=== PATIENT | male | born 1965 | race Caucasian/White ===

== ENCOUNTER 2018-07-07 09:41 | Emergency (ER) | payer OTHER ==
[~2018-07-07] VITALS: Ht 175.3 cm; Wt 78.2 kg
[2018-07-07] MEDS ORDERED: METO25XL PO (09:58)
[2018-07-07] MEDS ORDERED: LISI-662 PO (09:58)
[2018-07-07] MEDS ORDERED: HYDR25TA PO (09:58)
[2018-07-07] MEDS ORDERED: FAMOTIDINE 10 MG/ML 2 ML VIAL IVP ONE (10:30)
[2018-07-07] MEDS ORDERED: DiphenhydrAMINE HCL 50 MG/ML VIAL IVP ONE (10:30)
[2018-07-07] MEDS ORDERED: SODIUM CHLORIDE 0.9% 1,000 ML IV ONE (10:30)
[2018-07-07] MEDS ORDERED: MethylPREDNISolone SOD SUCC 125 MG/2 ML VIAL IVP ONE (10:30)
[2018-07-07] MEDS ORDERED: DARU1TAB PO (11:11)
[2018-07-07] MEDS ORDERED: LEVE500T8 PO (11:11)
[2018-07-07] MEDS ORDERED: EMTR1TAB13 PO (11:11)
[2018-07-07] MEDS ORDERED: TAMS0.4C32 PO (11:11)
[2018-07-07] MEDS ORDERED: TRAZ-184 PO (11:11)
[2018-07-07] MEDS ORDERED: MIRT30TA6 PO (11:11)
[2018-07-07] MEDS ORDERED: GABA-529 PO (11:11)
[2018-07-07] MEDS ORDERED: AMOX500T2 PO (11:11)
[2018-07-07 13:22] VITALS: BP 118/80
== END 2018-07-07 13:26 | disposition home or self-care (01) ==
LOC: EMS 09:43
DX: L50.9 Urticaria, unspecified (principal); R06.02 Shortness of breath; I10 Essential (primary) hypertension; Z88.6 Allergy status to analgesic agent; Z79.899 Other long term (current) drug therapy
CPT/HCPCS: 96374; 96375; 99285; J1200; J2930; J3490; J7030

== ENCOUNTER 2018-07-09 09:14 | Emergency (ER) | payer OTHER ==
[~2018-07-09] VITALS: Ht 175.3 cm; Wt 78.2 kg
[~2018-07-09 09:14] MED LIST: AMOX500T2 PO; DARU1TAB PO; EMTR1TAB13 PO; GABA-529 PO; HYDR25TA PO; LEVE500T8 PO; LISI-662 PO; METO25XL PO; MIRT30TA6 PO; TAMS0.4C32 PO; TRAZ-184 PO
[2018-07-09] MEDS ORDERED: EPIN0.3P3 IM (09:19)
[2018-07-09] MEDS ORDERED: PredniSONE 20 MG TABLET PO ONE (10:15)
[2018-07-09] MEDS ORDERED: DiphenhydrAMINE HCL 25 MG CAPSULE PO ONE (10:15)
[2018-07-09 12:57] VITALS: BP 125/75
== END 2018-07-09 13:22 | disposition home or self-care (01) ==
LOC: EMS 09:14
DX: L50.9 Urticaria, unspecified (principal); T78.1XXA Other adverse food reactions, not elsewhere classified, initial encounter; I10 Essential (primary) hypertension; X58.XXXA Exposure to other specified factors, initial encounter; Z88.6 Allergy status to analgesic agent
CPT/HCPCS: 93005; 99283; J7512

== ENCOUNTER 2018-07-10 09:30 | Emergency (ER) | payer OTHER ==
[~2018-07-10] VITALS: Ht 175.3 cm; Wt 78.2 kg
[~2018-07-10 09:30] MED LIST changes: +EPIN0.3P3 IM
[2018-07-10] MEDS ORDERED: PredniSONE 20 MG TABLET PO ONE (12:15)
[2018-07-10] MEDS ORDERED: DiphenhydrAMINE HCL 25 MG CAPSULE PO ONE (12:15)
[2018-07-10 13:24] VITALS: BP 128/75
== END 2018-07-10 13:25 | disposition home or self-care (01) ==
LOC: EMS 09:31
DX: T78.40XA Allergy, unspecified, initial encounter (principal); X58.XXXA Exposure to other specified factors, initial encounter; I10 Essential (primary) hypertension; Z88.6 Allergy status to analgesic agent; Z79.899 Other long term (current) drug therapy
CPT/HCPCS: 99283; J7512

== ENCOUNTER 2018-07-14 17:55 | Emergency (ER) | payer OTHER ==
[~2018-07-14] VITALS: Ht 170.2 cm; Wt 79.5 kg
[~2018-07-14 17:55] MED LIST changes: -AMOX500T2 PO
[2018-07-14] MEDS ORDERED: ACET-66 PO (18:07)
[2018-07-14] MEDS ORDERED: CHLO25 PO (18:13)
[2018-07-14] MEDS ORDERED: SILD25 PO (18:13)
[2018-07-14] MEDS ORDERED: HALO10 PO (18:13)
[2018-07-14] MEDS ORDERED: ATOR20TA86 PO (18:13)
[2018-07-14] MEDS ORDERED: SERT100T12 PO (18:13)
[2018-07-14] MEDS ORDERED: QUET300XR PO (18:13)
[2018-07-14] MEDS ORDERED: TOPI100T37 PO (18:13)
[2018-07-14] MEDS ORDERED: BUSP15 PO (18:13)
[2018-07-14 18:26] VITALS: BP 135/83
== END 2018-07-14 19:34 | disposition home or self-care (01) ==
LOC: EMS 17:56
DX: M79.661 Pain in right lower leg (principal); I10 Essential (primary) hypertension; F17.210 Nicotine dependence, cigarettes, uncomplicated; Z88.6 Allergy status to analgesic agent; Z79.899 Other long term (current) drug therapy
CPT/HCPCS: 93971

== ENCOUNTER 2018-07-28 12:53 | Emergency (ER) | payer OTHER ==
[~2018-07-28] VITALS: Ht 175.3 cm; Wt 77.7 kg
[~2018-07-28 12:53] MED LIST changes: +ACET-66 PO; +ATOR20TA86 PO; +BUSP15 PO; +CHLO25 PO; +HALO10 PO; +QUET300XR PO; +SERT100T12 PO; +SILD25 PO; +TOPI100T37 PO
[2018-07-28] MEDS ORDERED: HYDROCODONE/ACETAMINOPHEN 5-325 MG TABLET PO ONE (15:00)
[2018-07-28] MEDS ORDERED: AMOX TR/POT CLAV 875 MG/125 MG TABLET PO ONE (15:00)
[2018-07-28 15:26] VITALS: BP 122/74
== END 2018-07-28 15:28 | disposition home or self-care (01) ==
LOC: EMS 12:54
DX: K04.01 Reversible pulpitis (principal); I10 Essential (primary) hypertension; F17.210 Nicotine dependence, cigarettes, uncomplicated; Z79.899 Other long term (current) drug therapy; Z88.6 Allergy status to analgesic agent
CPT/HCPCS: 99406

== ENCOUNTER 2019-04-01 15:35 | Emergency (ER) | payer OTHER ==
[~2019-04-01] VITALS: Ht 175.3 cm; Wt 80.0 kg
[~2019-04-01 15:35] MED LIST changes: +QUET300T5 PO; -QUET300XR PO
[2019-04-01 16:57] LABS: BASOPHILS % (AUTO) 1.1 % (0.0-2.0); EOSINOPHILS % (AUTO) 1.9 % (1.0-6.0); HEMATOCRIT 43.3 % (41-53); HEMOGLOBIN 14.3 g/dL (13.5-17.5); LYMPHOCYTES # (AUTO) 2.2 K/uL (1.0-4.8); LYMPHOCYTES % (AUTO) 39.1 % (22.0-44.0); MEAN CORPUSCULAR HEMOGLOBIN 28.3 pg (26.0-34.0); MEAN CORPUSCULAR HGB CONC 32.9 G/dL (31.0-37.0); MEAN CORPUSCULAR VOLUME 86 fL (80-100); MONOCYTES # (AUTO) 0.4 K/uL (0.1-1.0); MONOCYTES % (AUTO) 7.2 % (2.0-9.0); NEUTROPHILS # (AUTO) 2.9 K/uL (1.8-7.7); NEUTROPHILS % (AUTO) 50.7 % (40.0-70.0); PLATELET COUNT (AUTO) 239 K/uL (150-450); RED BLOOD CELL COUNT(AUTO) 5.04 MIL/uL (4.50-5.90); RED CELL DISTRIBUTION WIDTH 13.1 % (11.5-14.5)
[2019-04-01 17:00] LABS: ANION GAP 10 mmol/L (8-16); CALCIUM, TOTAL 9.4 mg/dL (8.8-10.5); CARBON DIOXIDE 27 mmol/L (22-29); CHLORIDE 103 mmol/L (98-107); CREATININE 1.22 mg/dL (0.60-1.30); GLOMERULAR FILTR. RATE CALC > 60 mL/min (>60); GLUCOSE,RANDOM 96 mg/dL (70-110); POTASSIUM 4.4 mmol/L (3.5-5.1); SODIUM SERUM 140 mmol/L (136-145); UREA NITROGEN, BLOOD 15 mg/dL (7-18)
[2019-04-01 17:07] LABS: ALANINE AMINOTRANSFERASE 30 U/L (12-78); ALBUMIN 4.2 g/dL (3.4-5.0); ALKALINE PHOSPHATASE 72 U/L (46-116); ASPARTATE AMINOTRANSFERASE 27 U/L (15-37); BILIRUBIN,TOTAL 0.5 mg/dL (0.1-1.0); LIPASE 274 U/L (73-393); TOTAL PROTEIN, SERUM 7.3 g/dL (6.4-8.2)
[2019-04-01] MEDS ORDERED: SODIUM CHLORIDE 0.9% 1,000 ML IV ONE (17:30)
[2019-04-01] MEDS ORDERED: ACETAMINOPHEN 325 MG TABLET PO ONE (17:30)
[2019-04-01] MEDS ORDERED: LIDOCAINE 5% 36 GM OINTMENT TP ONE (18:00)
[2019-04-01 18:10] LABS: APPEARANCE,URINE CLEAR (CLEAR); BILIRUBIN,URINE NEGATIVE (NEGATIVE); GLUCOSE, URINE (UA) NEGATIVE (NEGATIVE); KETONES,URINE NEGATIVE (NEGATIVE); LEUKOCYTE ESTERASE ,URINE NEGATIVE (NEGATIVE); NITRATE,URINE NEGATIVE (NEGATIVE); OCCULT BLOOD,URINE NEGATIVE (NEGATIVE); PROTEIN,URINE NEGATIVE (NEGATIVE); UROBILINOGEN,URINE 0.2 mg/dL (<=1.0)
[2019-04-01] MEDS ORDERED: LIDOCAINE 5% TRANSDERMAL PATCH TD ONE ×2 (18:12→18:15)
[2019-04-01 18:39] VITALS: BP 150/82
== END 2019-04-01 18:40 | disposition home or self-care (01) ==
LOC: EMS 15:40
DX: M54.5 Low back pain (principal); I10 Essential (primary) hypertension; F20.9 Schizophrenia, unspecified; Z87.891 Personal history of nicotine dependence; Z88.6 Allergy status to analgesic agent; Z79.899 Other long term (current) drug therapy
CPT/HCPCS: 36415; 74176; 80053; 81003; 83690; 85025; 99284; J7030

== ENCOUNTER 2019-04-09 09:38 | Emergency (ER) | payer OTHER ==
[~2019-04-09] VITALS: Ht 175.3 cm; Wt 81.8 kg
[~2019-04-09 09:38] MED LIST changes: -ACET-66 PO; -ATOR20TA86 PO; -BUSP15 PO; -CHLO25 PO; -DARU1TAB PO; -EMTR1TAB13 PO; -GABA-529 PO; -LEVE500T8 PO; -MIRT30TA6 PO; -QUET300T5 PO; -SERT100T12 PO; -SILD25 PO; -TAMS0.4C32 PO; -TOPI100T37 PO
[2019-04-09] MEDS ORDERED: MORPHINE SULFATE 4 MG/ML SYRINGE IVP ONE (11:45)
[2019-04-09] MEDS ORDERED: ONDANSETRON HCL 4 MG/2 ML VIAL IVP ONE (11:45)
[2019-04-09 11:55] LABS: BASOPHILS % (AUTO) 0.7 % (0.0-2.0); EOSINOPHILS % (AUTO) 1.4 % (1.0-6.0); HEMATOCRIT 46.5 % (41-53); HEMOGLOBIN 15.8 g/dL (13.5-17.5); LYMPHOCYTES % (AUTO) 38.9 % (22.0-44.0); MEAN CORPUSCULAR HEMOGLOBIN 28.8 pg (26.0-34.0); MEAN CORPUSCULAR VOLUME 85 fL (80-100); MONOCYTES # (AUTO) 0.3 K/uL (0.1-1.0); MONOCYTES % (AUTO) 5.9 % (2.0-9.0); NEUTROPHILS # (AUTO) 2.7 K/uL (1.8-7.7); NEUTROPHILS % (AUTO) 53.1 % (40.0-70.0); PLATELET COUNT (AUTO) 258 K/uL (150-450); RED BLOOD CELL COUNT(AUTO) 5.48 MIL/uL (4.50-5.90); RED CELL DISTRIBUTION WIDTH 13.7 % (11.5-14.5)
[2019-04-09 12:08] LABS: INR 1.1 (0.9-1.1); PROTHROMBIN TIME 11.2 SEC (9.4-11.6)
[2019-04-09 12:14] LABS: ANION GAP 7 mmol/L (8-16); CALCIUM, TOTAL 9.2 mg/dL (8.8-10.5); CARBON DIOXIDE 28 mmol/L (22-29); CHLORIDE 104 mmol/L (98-107); CREATININE 1.08 mg/dL (0.60-1.30); GLOMERULAR FILTR. RATE CALC > 60 mL/min (>60); GLUCOSE,RANDOM 91 mg/dL (70-110); POTASSIUM 3.8 mmol/L (3.5-5.1); SODIUM SERUM 139 mmol/L (136-145); UREA NITROGEN, BLOOD 7 mg/dL (7-18)
[2019-04-09 12:34] LABS: B-TYPE NATRIURETIC PEPTIDE 18 pg/mL (0-100)
[2019-04-09 12:39] LABS: ALANINE AMINOTRANSFERASE 23 U/L (12-78); ALBUMIN 4.4 g/dL (3.4-5.0); ALKALINE PHOSPHATASE 65 U/L (46-116); ASPARTATE AMINOTRANSFERASE 16 U/L (15-37); BILIRUBIN,TOTAL 0.8 mg/dL (0.1-1.0); CREATINE KINASE, TOTAL ONLY 80 U/L (39-308); TOTAL PROTEIN, SERUM 7.4 g/dL (6.4-8.2)
[2019-04-09 12:51] LABS: APPEARANCE,URINE CLEAR (CLEAR); BILIRUBIN,URINE NEGATIVE (NEGATIVE); GLUCOSE, URINE (UA) NEGATIVE (NEGATIVE); KETONES,URINE NEGATIVE (NEGATIVE); LEUKOCYTE ESTERASE ,URINE NEGATIVE (NEGATIVE); NITRATE,URINE NEGATIVE (NEGATIVE); OCCULT BLOOD,URINE NEGATIVE (NEGATIVE); PH,URINE 6.5 (5.0-8.0); UROBILINOGEN,URINE 0.2 mg/dL (<=1.0)
[2019-04-09 12:52] LABS: PROTEIN,URINE NEGATIVE (NEGATIVE)
[2019-04-09 12:56] LABS: AMPHET/METH SCREEN,URINE NEGATIVE (NEGATIVE); BARBITURATE SCREEN, URINE NEGATIVE (NEGATIVE); BENZODIAZEPINES SCREEN,URINE NEGATIVE (NEGATIVE); CANNABINOID SCREEN,URINE NEGATIVE (NEGATIVE); COCAINE SCREEN,URINE NEGATIVE (NEGATIVE); METHADONE SCREEN, URINE NEGATIVE (NEGATIVE); OPIATE SCREEN,URINE NEGATIVE (NEGATIVE)
[2019-04-09 12:58] LABS: PHENCYCLIDINE SCREEN,URINE NEGATIVE (NEGATIVE)
[2019-04-09] MEDS ORDERED: HydrALAZINE HCL 20 MG/ML VIAL IVP ONE (13:00)
[2019-04-09] MEDS ORDERED: ACETAMINOPHEN 1000 MG/ISO-OSM 100 ML IV ONE (14:15)
[2019-04-09 17:33] VITALS: BP 133/96
== END 2019-04-09 17:50 | disposition home or self-care (01) ==
LOC: EMS 09:39
DX: I10 Essential (primary) hypertension (principal); R11.2 Nausea with vomiting, unspecified; F20.9 Schizophrenia, unspecified; Z87.891 Personal history of nicotine dependence; Z88.6 Allergy status to analgesic agent; Z79.899 Other long term (current) drug therapy
CPT/HCPCS: 36415; 70450; 71045; 80053; 80307; 81003; 82550; 83880; 84484; 85025; 85610; 85730; 93005; 96365; 96366; 96375; 99285; G0480; J0131; J0360; J2270; J2405

== ENCOUNTER 2019-11-27 09:42 | Emergency (ER) | payer OTHER ==
[~2019-11-27] VITALS: Ht 177.8 cm; Wt 79.5 kg
[~2019-11-27 09:42] MED LIST changes: -HALO10 PO; +HYDR-1475 PO; -HYDR25TA PO; +QUET200T PO; +TOPI100T37 PO; -TRAZ-184 PO
[2019-11-27] MEDS ORDERED: SODIUM CHLORIDE 0.9% 1,000 ML IV ONE (10:23)
[2019-11-27] MEDS ORDERED: METOCLOPRAMIDE HCL 5 MG/ML 2 ML VIAL IVP ONE (10:30)
[2019-11-27] MEDS ORDERED: DiphenhydrAMINE HCL 50 MG/ML VIAL IVP ONE (10:30)
[2019-11-27] MEDS ORDERED: HYDROCHLOROTHIAZIDE 25 MG TABLET PO ONE (12:15)
[2019-11-27] MEDS ORDERED: METOPROLOL SUCCINATE 25 MG ER TABLET PO ONE (12:15)
[2019-11-27 13:09] VITALS: BP 132/82
== END 2019-11-27 13:12 | disposition home or self-care (01) ==
LOC: EMS 09:44
DX: G43.909 Migraine, unspecified, not intractable, without status migrainosus (principal); I10 Essential (primary) hypertension; F17.210 Nicotine dependence, cigarettes, uncomplicated; F19.90 Other psychoactive substance use, unspecified, uncomplicated; F20.9 Schizophrenia, unspecified; Z79.899 Other long term (current) drug therapy; Z88.6 Allergy status to analgesic agent
CPT/HCPCS: 96374; 96375; 99284; 99406; J1200; J2765; J7030

== ENCOUNTER 2020-01-07 09:02 | Emergency (ER) | payer OTHER ==
[~2020-01-07] VITALS: Ht 172.7 cm; Wt 82.7 kg
[2020-01-07] MEDS ORDERED: TraMADol HCL 50 MG TABLET PO ONE (12:15)
[2020-01-07 12:30] VITALS: BP 129/82
== END 2020-01-07 12:36 | disposition home or self-care (01) ==
LOC: EMS 09:03
DX: L73.9 Follicular disorder, unspecified (principal); N50.82 Scrotal pain; I10 Essential (primary) hypertension; F20.9 Schizophrenia, unspecified; F17.210 Nicotine dependence, cigarettes, uncomplicated; F12.90 Cannabis use, unspecified, uncomplicated; F19.90 Other psychoactive substance use, unspecified, uncomplicated; Z88.6 Allergy status to analgesic agent; Z79.899 Other long term (current) drug therapy

== ENCOUNTER 2020-08-07 22:40 | Emergency (ER) | payer OTHER ==
[~2020-08-07] VITALS: Ht 175.3 cm; Wt 82.5 kg
[2020-08-08] LABS: COVID AG,FIA SOURCE NASOPHARYNGEAL
[2020-08-08 00:04] LABS: BASOPHILS % (AUTO) 0.8 % (0.0-2.0); EOSINOPHILS % (AUTO) 2.4 % (1.0-6.0); HEMATOCRIT 43.6 % (41-53); HEMOGLOBIN 14.9 g/dL (13.5-17.5); LYMPHOCYTES # (AUTO) 2.7 K/uL (1.0-4.8); LYMPHOCYTES % (AUTO) 32.9 % (22.0-44.0); MEAN CORPUSCULAR HEMOGLOBIN 30.1 pg (26.0-34.0); MEAN CORPUSCULAR HGB CONC 34.3 G/dL (31.0-37.0); MEAN CORPUSCULAR VOLUME 88 fL (80-100); MONOCYTES # (AUTO) 0.7 K/uL (0.1-1.0); MONOCYTES % (AUTO) 8.7 % (2.0-9.0); NEUTROPHILS # (AUTO) 4.6 K/uL (1.8-7.7); NEUTROPHILS % (AUTO) 55.2 % (40.0-70.0); PLATELET COUNT (AUTO) 265 K/uL (150-450); RED BLOOD CELL COUNT(AUTO) 4.97 MIL/uL (4.50-5.90); RED CELL DISTRIBUTION WIDTH 14.5 % (11.5-14.5)
[2020-08-08 00:27] LABS: ANION GAP 13 mmol/L (8-16); CALCIUM, TOTAL 8.8 mg/dL (8.8-10.5); CARBON DIOXIDE 26 mmol/L (22-29); CHLORIDE 101 mmol/L (98-107); CREATININE 1.24 mg/dL (0.60-1.30); GLOMERULAR FILTR. RATE CALC > 60 mL/min (>60); GLUCOSE,RANDOM 125 mg/dL (70-110); POTASSIUM 3.2 mmol/L (3.5-5.1); SODIUM SERUM 140 mmol/L (136-145); UREA NITROGEN, BLOOD 20 mg/dL (7-18)
[2020-08-08 00:34] LABS: ALANINE AMINOTRANSFERASE 41 U/L (12-78); ALBUMIN 3.9 g/dL (3.4-5.0); ALKALINE PHOSPHATASE 99 U/L (46-116); ASPARTATE AMINOTRANSFERASE 20 U/L (15-37); BILIRUBIN,TOTAL 0.5 mg/dL (0.1-1.0); TOTAL PROTEIN, SERUM 7.2 g/dL (6.4-8.2)
[2020-08-08] MEDS ORDERED: ACETAMINOPHEN 325 MG TABLET PO ONE (02:30)
[2020-08-08 03:03] VITALS: BP 117/81
== END 2020-08-08 03:06 | disposition home or self-care (01) ==
LOC: EMS 22:40
DX: R42 Dizziness and giddiness (principal); Z20.822 Contact with and (suspected) exposure to COVID-19
CPT/HCPCS: 70450; 87426; 93005

== ENCOUNTER 2021-07-16 19:54 | Emergency (ER) | payer OTHER ==
[~2021-07-16] VITALS: Ht 175.3 cm; Wt 74.1 kg
[~2021-07-16 19:54] MED LIST changes: -HYDR-1475 PO; +HYDR25TA2 PO; -LISI-662 PO; +LISI-894 PO
[2021-07-16 19:55] VITALS: BP 159/109
[2021-07-16] MEDS ORDERED: FLUO10CA24 PO (20:06)
== END 2021-07-16 20:37 | disposition home or self-care (01) ==
LOC: EMS 20:01
DX: S61.215A Laceration without foreign body of left ring finger without damage to nail, initial encounter (principal); I10 Essential (primary) hypertension; F15.90 Other stimulant use, unspecified, uncomplicated; F17.210 Nicotine dependence, cigarettes, uncomplicated; Z88.8 Allergy status to other drugs, medicaments and biological substances; Z79.899 Other long term (current) drug therapy; W45.8XXA Other foreign body or object entering through skin, initial encounter; Y93.89 Activity, other specified; Y92.89 Other specified places as the place of occurrence of the external cause; Y99.8 Other external cause status
CPT/HCPCS: 99282; Z7502

== ENCOUNTER 2021-07-30 09:14 | Emergency (ER) | payer OTHER ==
[~2021-07-30] VITALS: Ht 182.9 cm; Wt 79.5 kg
[~2021-07-30 09:14] MED LIST changes: +FLUO10CA24 PO
[2021-07-30] MEDS ORDERED: LOPERAMIDE HCL 2 MG CAPSULE PO ONE (10:15)
[2021-07-30] MEDS ORDERED: ONDANSETRON HCL 4 MG/2 ML VIAL IVP ONE (10:15)
[2021-07-30] MEDS ORDERED: SODIUM CHLORIDE 0.9% 1,000 ML IV ONE (10:15)
[2021-07-30] MEDS ORDERED: ACETAMINOPHEN 1000 MG/ISO-OSM 100 ML IV ONE (10:15)
[2021-07-30 10:42] LABS: APPEARANCE,URINE CLEAR (CLEAR); BILIRUBIN,URINE NEGATIVE (NEGATIVE); GLUCOSE, URINE (UA) 250 mg/dL (NEGATIVE); KETONES,URINE NEGATIVE (NEGATIVE); LEUKOCYTE ESTERASE ,URINE NEGATIVE (NEGATIVE); NITRATE,URINE NEGATIVE (NEGATIVE); OCCULT BLOOD,URINE NEGATIVE (NEGATIVE); PH,URINE 5.5 (5.0-8.0); PROTEIN,URINE NEGATIVE (NEGATIVE); UROBILINOGEN,URINE 0.2 mg/dL (<=1.0)
[2021-07-30 10:44] LABS: BASOPHILS % (AUTO) 0.6 % (0.0-2.0); EOSINOPHILS % (AUTO) 0.4 % (1.0-6.0); HEMATOCRIT 48.1 % (41-53); HEMOGLOBIN 16.9 g/dL (13.5-17.5); LYMPHOCYTES # (AUTO) 1.7 K/uL (1.0-4.8); LYMPHOCYTES % (AUTO) 21.3 % (22.0-44.0); MEAN CORPUSCULAR HGB CONC 35.1 G/dL (31.0-37.0); MEAN CORPUSCULAR VOLUME 85 fL (80-100); MONOCYTES # (AUTO) 0.4 K/uL (0.1-1.0); MONOCYTES % (AUTO) 5.4 % (2.0-9.0); NEUTROPHILS # (AUTO) 5.8 K/uL (1.8-7.7); NEUTROPHILS % (AUTO) 72.3 % (40.0-70.0); PLATELET COUNT (AUTO) 248 K/uL (150-450); RED BLOOD CELL COUNT(AUTO) 5.64 MIL/uL (4.50-5.90); RED CELL DISTRIBUTION WIDTH 13.7 % (11.5-14.5)
[2021-07-30 10:45] LABS: COVID AG,FIA SOURCE NASOPHARYNGEAL
[2021-07-30 10:54] LABS: ANION GAP 5 mmol/L (8-16); CALCIUM, TOTAL 9.7 mg/dL (8.8-10.5); CARBON DIOXIDE 29 mmol/L (22-29); CHLORIDE 103 mmol/L (98-107); CREATININE 0.99 mg/dL (0.60-1.30); GLOMERULAR FILTR. RATE CALC > 60 mL/min (>60); GLUCOSE,RANDOM 89 mg/dL (70-110); POTASSIUM 3.6 mmol/L (3.5-5.1); SODIUM SERUM 137 mmol/L (136-145); UREA NITROGEN, BLOOD 12 mg/dL (7-18)
[2021-07-30 10:59] LABS: BACTERIA,URINE None Seen /HPF (None Seen); RBC,URINE None Seen /HPF (0-2); SQUAMOUS EPITHELIAL CELL,UR None Seen /LPF (None Seen); WBC,URINE None Seen /HPF (0-5)
[2021-07-30 11:00] LABS: ALANINE AMINOTRANSFERASE 68 U/L (12-78); ALBUMIN 4.3 g/dL (3.4-5.0); ALKALINE PHOSPHATASE 91 U/L (46-116); ASPARTATE AMINOTRANSFERASE 20 U/L (15-37); BILIRUBIN,TOTAL 0.5 mg/dL (0.1-1.0); LIPASE 173 U/L (73-393); TOTAL PROTEIN, SERUM 7.8 g/dL (6.4-8.2)
[2021-07-30 11:24] VITALS: BP 154/99
== END 2021-07-30 11:37 | disposition home or self-care (01) ==
LOC: EMS 09:20
DX: K52.9 Noninfective gastroenteritis and colitis, unspecified (principal); M79.10 Myalgia, unspecified site; I10 Essential (primary) hypertension; F17.210 Nicotine dependence, cigarettes, uncomplicated; Z20.822 Contact with and (suspected) exposure to COVID-19; Z88.6 Allergy status to analgesic agent; Z79.899 Other long term (current) drug therapy
CPT/HCPCS: 36415; 74176; 80053; 81001; 83690; 85025; 87426; 96361; 96374; 96375; 99284; J0131; J2405; J7030

== ENCOUNTER 2021-08-19 15:44 | Inpatient (IN) | payer MEDICAID, OTHER ==
[~2021-08-19] VITALS: Ht 175.3 cm; Wt 77.7 kg
[2021-08-19] MEDS ORDERED: HYDR25TA2 PO (15:48)
[2021-08-19] MEDS ORDERED: AMLO-257 PO (15:48)
[2021-08-19] MEDS ORDERED: LOSA-382 PO (15:48)
[2021-08-19] MEDS ORDERED: DiphenhydrAMINE HCL 25 MG CAPSULE PO ONE (17:00)
[2021-08-19] MEDS ORDERED: QUEtiapine FUMARATE 100 MG TABLET PO ONE (17:00)
[2021-08-19] MEDS ORDERED: LORazepam 2 MG TABLET PO ONE (20:30)
[2021-08-19] MEDS ORDERED: HALOPERIDOL 5 MG TABLET PO ONE (20:30)
[2021-08-19 20:35] LABS: COVID AG,FIA SOURCE NASOPHARYNGEAL
[2021-08-19 20:35] LABS: BASOPHILS % (AUTO) 0.7 % (0.0-2.0); EOSINOPHILS % (AUTO) 1.7 % (1.0-6.0); HEMATOCRIT 47.8 % (41-53); HEMOGLOBIN 16.6 g/dL (13.5-17.5); LYMPHOCYTES % (AUTO) 21.8 % (22.0-44.0); MEAN CORPUSCULAR HGB CONC 34.8 G/dL (31.0-37.0); MEAN CORPUSCULAR VOLUME 86 fL (80-100); MONOCYTES # (AUTO) 0.5 K/uL (0.1-1.0); MONOCYTES % (AUTO) 5.7 % (2.0-9.0); NEUTROPHILS # (AUTO) 6.3 K/uL (1.8-7.7); NEUTROPHILS % (AUTO) 70.1 % (40.0-70.0); PLATELET COUNT (AUTO) 232 K/uL (150-450); RED BLOOD CELL COUNT(AUTO) 5.55 MIL/uL (4.50-5.90); RED CELL DISTRIBUTION WIDTH 14.2 % (11.5-14.5)
[2021-08-19 20:44] LABS: ANION GAP 11 mmol/L (8-16); CALCIUM, TOTAL 9.5 mg/dL (8.8-10.5); CARBON DIOXIDE 24 mmol/L (22-29); CHLORIDE 102 mmol/L (98-107); CREATININE 1.75 mg/dL (0.60-1.30); GLOMERULAR FILTR. RATE CALC 41 mL/min (>60); GLUCOSE,RANDOM 194 mg/dL (70-110); POTASSIUM 3.3 mmol/L (3.5-5.1); SODIUM SERUM 137 mmol/L (136-145); UREA NITROGEN, BLOOD 19 mg/dL (7-18)
[2021-08-19 20:58] LABS: ALANINE AMINOTRANSFERASE 26 U/L (12-78); ALBUMIN 4.4 g/dL (3.4-5.0); ALKALINE PHOSPHATASE 77 U/L (46-116); ASPARTATE AMINOTRANSFERASE 16 U/L (15-37); BILIRUBIN,TOTAL 0.9 mg/dL (0.1-1.0); CHOL/HDL RATIO 4.5 (4.2-7.3); CHOLESTEROL 237 mg/dL (131-200); HDL CHOLESTEROL 53 mg/dL (40-60); LDL CHOL (CALC.) 147 mg/dL (0-130); THYROID STIMULATING HORMONE 0.62 uIU/mL (0.36-3.74); TOTAL PROTEIN, SERUM 7.7 g/dL (6.4-8.2); TRIGLYCERIDES 187 mg/dL (15-150)
[2021-08-19 22:20] LABS: AMPHET/METH SCREEN,URINE NEGATIVE (NEGATIVE); BARBITURATE SCREEN, URINE NEGATIVE (NEGATIVE); BENZODIAZEPINES SCREEN,URINE NEGATIVE (NEGATIVE); CANNABINOID SCREEN,URINE NEGATIVE (NEGATIVE); COCAINE SCREEN,URINE NEGATIVE (NEGATIVE); METHADONE SCREEN, URINE NEGATIVE (NEGATIVE); OPIATE SCREEN,URINE NEGATIVE (NEGATIVE); PHENCYCLIDINE SCREEN,URINE NEGATIVE (NEGATIVE)
[2021-08-19] MEDS ORDERED: LORazepam 2 MG TABLET PO PRN (23:30)
[2021-08-19] MEDS ORDERED: ZOLPIDEM TARTRATE 10 MG TABLET PO PRN (23:30)
[2021-08-19] MEDS ORDERED: HALOPERIDOL 5 MG TABLET PO PRN (23:30)
[2021-08-20] MEDS ORDERED: HALOPERIDOL 5 MG TABLET PO PRN (00:30)
[2021-08-20] MEDS: LORazepam 2 MG TABLET PO PRN ×2 (02:33→17:53)
[2021-08-20 02:55] VITALS: BP 132/72
[2021-08-20] MEDS ORDERED: PNEUMOCOCCAL VACCINE POLYVALENT 0.5 ML VIAL [PPSV23] IM. ONE (03:45)
[2021-08-20] MEDS ORDERED: INFLUENZA VIRUS VACCINE QVS 2021-22 (6MO+)/PF 60 MCG/0.5 ML SYRINGE IM. ONE (03:45)
[2021-08-20] MEDS ORDERED: POTASSIUM CHLORIDE 20 MEQ ER TABLET PO ONE (08:00)
[2021-08-20 08:08] VITALS: BP 140/69
[2021-08-20] MEDS: QUEtiapine FUMARATE 100 MG TABLET PO SCH ×2 (12:29→20:28)
[2021-08-20] MEDS ORDERED: ONDANSETRON HCL 4 MG TABLET PO PRN (12:30)
[2021-08-20] MEDS ORDERED: CloNIDine HCL 0.1 MG TABLET PO PRN (12:30)
[2021-08-20] MEDS ORDERED: MAGNESIUM HYDROXIDE SUSPENSION 30 ML UDCUP PO PRN (12:30)
[2021-08-20] MEDS ORDERED: LOPERAMIDE HCL 2 MG CAPSULE PO PRN (12:30)
[2021-08-20] MEDS ORDERED: GuaiFENesin/D-METHORPHAN [SUGAR-FREE] 200-20MG/10 ML SYRUP UDCUP PO PRN (12:30)
[2021-08-20] MEDS ORDERED: ALBUTEROL SULFATE HFA 90 MCG/PUFF 8 GM INHALER IH PRN (12:30)
[2021-08-20] MEDS ORDERED: PETROLATUM,WHITE 28 GM JELLY TP PRN (12:30)
[2021-08-20] MEDS ORDERED: NICOTINE 14 MG/24 HOUR PATCH TD PRN (12:30)
[2021-08-20] MEDS ORDERED: DOCUSATE SODIUM 100 MG CAPSULE PO PRN (12:30)
[2021-08-20] MEDS ORDERED: MAG HYDROX/AL HYDROX/SIMETH ES 30 ML SUSPENSION UDCUP PO PRN (12:30)
[2021-08-20 16:06] VITALS: BP 142/80
[2021-08-20] MEDS: FLUoxetine HCL 10 MG CAPSULE PO SCH (16:29)
[2021-08-20] MEDS: TOPIRAMATE 100 MG TABLET PO SCH (16:29)
[2021-08-20] MEDS ORDERED: QUEtiapine FUMARATE 200 MG TABLET PO SCH (21:00)
[2021-08-20] MEDS: ZOLPIDEM TARTRATE 10 MG TABLET PO PRN (22:59)
[2021-08-21 00:31] VITALS: BP 144/82
[2021-08-21] MEDS: LORazepam 2 MG TABLET PO PRN ×4 (00:42→22:49)
[2021-08-21] MEDS: ACETAMINOPHEN 325 MG TABLET PO PRN (00:43)
[2021-08-21 08:03] VITALS: BP 171/121
[2021-08-21] MEDS: FLUoxetine HCL 10 MG CAPSULE PO SCH (08:09)
[2021-08-21] MEDS: QUEtiapine FUMARATE 100 MG TABLET PO SCH ×2 (08:09→20:17)
[2021-08-21] MEDS: TOPIRAMATE 100 MG TABLET PO SCH ×2 (08:09→16:12)
[2021-08-21] MEDS: AmLODIPine BESYLATE 5 MG TABLET PO SCH (08:10)
[2021-08-21] MEDS: LOSARTAN POTASSIUM 50 MG TABLET PO SCH (08:10)
[2021-08-21 10:50] VITALS: BP 131/75
[2021-08-21 16:13] VITALS: BP 160/122
[2021-08-22 00:12] VITALS: BP 180/118
[2021-08-22 01:18] VITALS: BP 147/92
[2021-08-22] MEDS: QUEtiapine FUMARATE 100 MG TABLET PO SCH ×3 (04:25→20:23)
[2021-08-22 08:18] VITALS: BP 145/99
[2021-08-22 08:39] LABS: ANION GAP 12 mmol/L (8-16); CALCIUM, TOTAL 8.9 mg/dL (8.8-10.5); CARBON DIOXIDE 26 mmol/L (22-29); CHLORIDE 106 mmol/L (98-107); CHOL/HDL RATIO 5.2 (4.2-7.3); CHOLESTEROL 193 mg/dL (131-200); CREATININE 0.97 mg/dL (0.60-1.30); GLOMERULAR FILTR. RATE CALC > 60 mL/min (>60); GLUCOSE,RANDOM 105 mg/dL (70-110); HDL CHOLESTEROL 37 mg/dL (40-60); LDL CHOL (CALC.) 79 mg/dL (0-130); POTASSIUM 4.2 mmol/L (3.5-5.1); SODIUM SERUM 144 mmol/L (136-145); TRIGLYCERIDES 385 mg/dL (15-150); UREA NITROGEN, BLOOD 19 mg/dL (7-18)
[2021-08-22] MEDS: FLUoxetine HCL 10 MG CAPSULE PO SCH (08:47)
[2021-08-22] MEDS: LOSARTAN POTASSIUM 50 MG TABLET PO SCH (08:47)
[2021-08-22] MEDS: TOPIRAMATE 100 MG TABLET PO SCH ×2 (08:48→16:42)
[2021-08-22] MEDS: AmLODIPine BESYLATE 5 MG TABLET PO SCH (08:48)
[2021-08-22] MEDS: LORazepam 2 MG TABLET PO PRN ×3 (11:11→23:25)
[2021-08-22 16:09] VITALS: BP 126/78
[2021-08-22] MEDS: ACETAMINOPHEN 325 MG TABLET PO PRN (21:02)
[2021-08-23 00:02] VITALS: BP 137/98
[2021-08-23] MEDS: ZOLPIDEM TARTRATE 10 MG TABLET PO PRN (00:29)
[2021-08-23 08:24] VITALS: BP 155/107
[2021-08-23] MEDS: TOPIRAMATE 100 MG TABLET PO SCH (08:27)
[2021-08-23] MEDS: LOSARTAN POTASSIUM 50 MG TABLET PO SCH (08:27)
[2021-08-23] MEDS: QUEtiapine FUMARATE 100 MG TABLET PO SCH (08:27)
[2021-08-23] MEDS: FLUoxetine HCL 10 MG CAPSULE PO SCH (08:27)
[2021-08-23] MEDS: AmLODIPine BESYLATE 5 MG TABLET PO SCH (08:27)
[2021-08-23] MEDS ORDERED: TOPI100T37 PO (12:51)
[2021-08-23] MEDS ORDERED: QUET200T PO (12:51)
[2021-08-23] MEDS ORDERED: FLUO10CA24 PO (12:51)
[2021-08-23] MEDS ORDERED: QUET100T34 PO (12:51)
== END 2021-08-23 13:00 | disposition home or self-care (01) | DRG 750 ==
LOC: EMS 15:50 → B2X 23:00
PROVIDERS: ADMIT Psychiatry & Neurology Child & Adolescent Psychiatry; ATTEND Psychiatry & Neurology Child & Adolescent Psychiatry
DX: F25.1 Schizoaffective disorder, depressive type (principal); N17.9 Acute kidney failure, unspecified; R45.851 Suicidal ideations; F15.10 Other stimulant abuse, uncomplicated; I10 Essential (primary) hypertension; E87.6 Hypokalemia; J30.9 Allergic rhinitis, unspecified; F17.210 Nicotine dependence, cigarettes, uncomplicated; K21.9 Gastro-esophageal reflux disease without esophagitis; Z20.822 Contact with and (suspected) exposure to COVID-19; Z88.8 Allergy status to other drugs, medicaments and biological substances
CPT/HCPCS: 80048; 80053; 80061; 84443; 85025; 99285; G0480

== ENCOUNTER 2022-01-10 11:56 | Inpatient (IN) | payer MEDICAID, OTHER ==
[~2022-01-10] VITALS: Ht 177.8 cm; Wt 80.0 kg
[~2022-01-10 11:56] MED LIST changes: +AMLO-257 PO; -EPIN0.3P3 IM; -HYDR25TA2 PO; -LISI-894 PO; +LOSA-382 PO; -METO25XL PO; +QUET100T34 PO
[2022-01-10] MEDS ORDERED: ARIP400S3 IM (12:12)
[2022-01-10] MEDS ORDERED: HYDR-4870 PO (12:12)
[2022-01-10 12:49] LABS: BASOPHILS % (AUTO) 0.6 % (0.0-2.0); EOSINOPHILS % (AUTO) 1.8 % (1.0-6.0); HEMOGLOBIN 14.2 g/dL (13.5-17.5); LYMPHOCYTES # (AUTO) 1.7 K/uL (1.0-4.8); LYMPHOCYTES % (AUTO) 22.9 % (22.0-44.0); MEAN CORPUSCULAR HEMOGLOBIN 29.3 pg (26.0-34.0); MEAN CORPUSCULAR HGB CONC 34.7 G/dL (31.0-37.0); MEAN CORPUSCULAR VOLUME 84 fL (80-100); MONOCYTES # (AUTO) 0.5 K/uL (0.1-1.0); MONOCYTES % (AUTO) 6.7 % (2.0-9.0); NEUTROPHILS # (AUTO) 4.9 K/uL (1.8-7.7); PLATELET COUNT (AUTO) 220 K/uL (150-450); RED BLOOD CELL COUNT(AUTO) 4.86 MIL/uL (4.50-5.90); RED CELL DISTRIBUTION WIDTH 13.2 % (11.5-14.5)
[2022-01-10 13:00] LABS: ANION GAP 9 mmol/L (8-16); CALCIUM, TOTAL 8.5 mg/dL (8.8-10.5); CARBON DIOXIDE 26 mmol/L (22-29); CHLORIDE 102 mmol/L (98-107); GLOMERULAR FILTR. RATE CALC > 60 mL/min (>60); GLUCOSE,RANDOM 147 mg/dL (70-110); POTASSIUM 3.4 mmol/L (3.5-5.1); SODIUM SERUM 137 mmol/L (136-145); UREA NITROGEN, BLOOD 18 mg/dL (7-18)
[2022-01-10 13:05] LABS: ALANINE AMINOTRANSFERASE 32 U/L (12-78); ALBUMIN 3.8 g/dL (3.4-5.0); ALKALINE PHOSPHATASE 74 U/L (46-116); ASPARTATE AMINOTRANSFERASE 21 U/L (15-37); BILIRUBIN,TOTAL 0.3 mg/dL (0.1-1.0); TOTAL PROTEIN, SERUM 6.4 g/dL (6.4-8.2)
[2022-01-10] MEDS ORDERED: QUEtiapine FUMARATE 100 MG TABLET PO ONE (13:30)
[2022-01-10] MEDS ORDERED: POTASSIUM CHLORIDE 10% 40 MEQ/30 ML LIQUID UDCUP PO ONE (13:30)
[2022-01-10] MEDS ORDERED: LORazepam 2 MG TABLET PO ONE (13:30)
[2022-01-10 13:32] LABS: AMPHET/METH SCREEN,URINE POSITIVE (NEGATIVE); BARBITURATE SCREEN, URINE NEGATIVE (NEGATIVE); BENZODIAZEPINES SCREEN,URINE NEGATIVE (NEGATIVE); CANNABINOID SCREEN,URINE POSITIVE (NEGATIVE); COCAINE SCREEN,URINE NEGATIVE (NEGATIVE); METHADONE SCREEN, URINE NEGATIVE (NEGATIVE); OPIATE SCREEN,URINE NEGATIVE (NEGATIVE); PHENCYCLIDINE SCREEN,URINE NEGATIVE (NEGATIVE)
[2022-01-10] MEDS ORDERED: IBUP-2070 PO (13:32)
[2022-01-10] MEDS ORDERED: ATOR20TA65 PO (13:32)
[2022-01-10] MEDS ORDERED: FLUO20CA36 PO (13:32)
[2022-01-10] MEDS ORDERED: HYDR50CA6 PO (13:32)
[2022-01-10] MEDS ORDERED: GABA800T9 PO (13:32)
[2022-01-10 14:28] LABS: COVID AG,FIA SOURCE NASOPHARYNGEAL
[2022-01-10] MEDS ORDERED: OMEPRAZOLE 20 MG CAPSULE PO PRN (17:45)
[2022-01-10] MEDS ORDERED: ACETAMINOPHEN 325 MG TABLET PO PRN (17:45)
[2022-01-10] MEDS ORDERED: LOPERAMIDE HCL 2 MG CAPSULE PO PRN (17:45)
[2022-01-10] MEDS: LOSARTAN POTASSIUM 50 MG TABLET PO SCH (17:45)
[2022-01-10] MEDS ORDERED: MAG HYDROX/AL HYDROX/SIMETH ES 30 ML SUSPENSION UDCUP PO PRN (17:45)
[2022-01-10] MEDS ORDERED: PETROLATUM,WHITE 28 GM JELLY TP PRN (17:45)
[2022-01-10] MEDS ORDERED: DOCUSATE SODIUM 100 MG CAPSULE PO PRN (17:45)
[2022-01-10] MEDS ORDERED: ONDANSETRON HCL 4 MG TABLET PO PRN (17:45)
[2022-01-10] MEDS ORDERED: BACITRACIN 28 GM OINTMENT TP PRN (17:45)
[2022-01-10] MEDS ORDERED: MAGNESIUM HYDROXIDE SUSPENSION 30 ML UDCUP PO PRN (17:45)
[2022-01-10] MEDS ORDERED: ALBUTEROL SULFATE HFA 90 MCG/PUFF 8 GM INHALER IH PRN (17:45)
[2022-01-10] MEDS ORDERED: CloNIDine HCL 0.1 MG TABLET PO PRN (17:45)
[2022-01-10] MEDS ORDERED: BENZOCAINE/MENTHOL LOZENGE PO PRN (17:45)
[2022-01-10 21:20] VITALS: BP 152/102
[2022-01-10] MEDS: HALOPERIDOL 5 MG TABLET PO PRN (21:38)
[2022-01-10] MEDS: LORazepam 2 MG TABLET PO PRN (21:38)
[2022-01-10 22:00] VITALS: BP 136/82
[2022-01-11 00:12] VITALS: BP 132/79
[2022-01-11 08:08] VITALS: BP 148/104
[2022-01-11] MEDS: HYDROCHLOROTHIAZIDE 25 MG TABLET PO SCH (08:27)
[2022-01-11] MEDS: AmLODIPine BESYLATE 5 MG TABLET PO SCH (08:27)
[2022-01-11] MEDS: LOSARTAN POTASSIUM 50 MG TABLET PO SCH (08:27)
[2022-01-11] MEDS: ATORVASTATIN CALCIUM 20 MG TABLET PO SCH (08:27)
[2022-01-11] MEDS: ARIPiprazole 15 MG TABLET PO SCH (11:49)
[2022-01-11] MEDS: DIVALPROEX SODIUM 500 MG DR TABLET PO SCH ×2 (11:49→16:07)
[2022-01-11 16:00] VITALS: BP 140/90
[2022-01-11] MEDS: LORazepam 2 MG TABLET PO PRN (16:26)
[2022-01-11] MEDS: HALOPERIDOL 5 MG TABLET PO PRN (17:11)
[2022-01-12 00:40] VITALS: BP 140/95
[2022-01-12] MEDS: LOSARTAN POTASSIUM 50 MG TABLET PO SCH (08:03)
[2022-01-12] MEDS: HYDROCHLOROTHIAZIDE 25 MG TABLET PO SCH (08:03)
[2022-01-12] MEDS: AmLODIPine BESYLATE 5 MG TABLET PO SCH (08:03)
[2022-01-12] MEDS: DIVALPROEX SODIUM 500 MG DR TABLET PO SCH ×2 (08:03→17:00)
[2022-01-12] MEDS: ARIPiprazole 15 MG TABLET PO SCH (08:03)
[2022-01-12] MEDS: ATORVASTATIN CALCIUM 20 MG TABLET PO SCH (08:03)
[2022-01-12] MEDS: LORazepam 2 MG TABLET PO PRN ×2 (08:05→17:00)
[2022-01-12] MEDS: HALOPERIDOL 5 MG TABLET PO PRN ×2 (08:05→17:00)
[2022-01-12 08:07] VITALS: BP 165/100
[2022-01-12 08:28] LABS: HEMOGLOBIN A1C 5.6 % (3.8-5.6)
[2022-01-12 08:40] LABS: ANION GAP 9 mmol/L (8-16); CALCIUM, TOTAL 8.9 mg/dL (8.8-10.5); CARBON DIOXIDE 28 mmol/L (22-29); CHLORIDE 103 mmol/L (98-107); CHOL/HDL RATIO 3.3 (4.2-7.3); CHOLESTEROL 172 mg/dL (131-200); CREATININE 0.89 mg/dL (0.60-1.30); GLUCOSE,RANDOM 89 mg/dL (70-110); HDL CHOLESTEROL 52 mg/dL (40-60); LDL CHOL (CALC.) 101 mg/dL (0-130); POTASSIUM 3.7 mmol/L (3.5-5.1); SODIUM SERUM 140 mmol/L (136-145); THYROID STIMULATING HORMONE 0.21 uIU/mL (0.36-3.74); TRIGLYCERIDES 95 mg/dL (15-150); UREA NITROGEN, BLOOD 13 mg/dL (7-18)
[2022-01-12 08:42] LABS: GLOMERULAR FILTR. RATE CALC > 60 mL/min (>60)
[2022-01-12 12:23] VITALS: BP 165/100
[2022-01-12 16:02] VITALS: BP 148/84
[2022-01-12 16:07] VITALS: BP 148/84
[2022-01-13 03:25] VITALS: BP 113/75
[2022-01-13] MEDS: ATORVASTATIN CALCIUM 20 MG TABLET PO SCH (08:05)
[2022-01-13] MEDS: HYDROCHLOROTHIAZIDE 25 MG TABLET PO SCH (08:05)
[2022-01-13] MEDS: LOSARTAN POTASSIUM 50 MG TABLET PO SCH (08:05)
[2022-01-13] MEDS: HALOPERIDOL 5 MG TABLET PO PRN ×2 (08:05→17:02)
[2022-01-13] MEDS: ARIPiprazole 15 MG TABLET PO SCH (08:05)
[2022-01-13] MEDS: AmLODIPine BESYLATE 5 MG TABLET PO SCH (08:05)
[2022-01-13] MEDS: DIVALPROEX SODIUM 500 MG DR TABLET PO SCH ×2 (08:05→17:02)
[2022-01-13] MEDS: LORazepam 2 MG TABLET PO PRN ×2 (08:05→17:02)
[2022-01-13 08:10] VITALS: BP 119/70
[2022-01-13 16:04] VITALS: BP 114/70
[2022-01-14 05:09] VITALS: BP 109/76
[2022-01-14 07:52] VITALS: BP 104/67
[2022-01-14] MEDS: LOSARTAN POTASSIUM 50 MG TABLET PO SCH (08:18)
[2022-01-14] MEDS: ARIPiprazole 15 MG TABLET PO SCH (08:18)
[2022-01-14] MEDS: HYDROCHLOROTHIAZIDE 25 MG TABLET PO SCH (08:18)
[2022-01-14] MEDS: LORazepam 2 MG TABLET PO PRN ×2 (08:18→16:38)
[2022-01-14] MEDS: ATORVASTATIN CALCIUM 20 MG TABLET PO SCH (08:18)
[2022-01-14] MEDS: DIVALPROEX SODIUM 500 MG DR TABLET PO SCH ×2 (08:18→16:38)
[2022-01-14] MEDS: HALOPERIDOL 5 MG TABLET PO PRN ×2 (08:19→16:38)
[2022-01-14] MEDS: AmLODIPine BESYLATE 5 MG TABLET PO SCH (08:19)
[2022-01-14 11:33] VITALS: BP 104/67
[2022-01-14 16:03] VITALS: BP 132/72
[2022-01-15 03:41] VITALS: BP 123/82
[2022-01-15] MEDS: LOSARTAN POTASSIUM 50 MG TABLET PO SCH (08:25)
[2022-01-15] MEDS: ATORVASTATIN CALCIUM 20 MG TABLET PO SCH (08:25)
[2022-01-15] MEDS: DIVALPROEX SODIUM 500 MG DR TABLET PO SCH ×2 (08:25→16:04)
[2022-01-15] MEDS: AmLODIPine BESYLATE 5 MG TABLET PO SCH (08:25)
[2022-01-15] MEDS: ARIPiprazole 15 MG TABLET PO SCH (08:25)
[2022-01-15] MEDS: HYDROCHLOROTHIAZIDE 25 MG TABLET PO SCH (08:26)
[2022-01-15 09:33] VITALS: BP 110/71
[2022-01-15 17:01] VITALS: BP 117/63
[2022-01-15] MEDS: LORazepam 2 MG TABLET PO PRN (18:36)
[2022-01-16 04:27] VITALS: BP 129/77
[2022-01-16] MEDS: ARIPiprazole 15 MG TABLET PO SCH (08:07)
[2022-01-16] MEDS: HYDROCHLOROTHIAZIDE 25 MG TABLET PO SCH (08:07)
[2022-01-16] MEDS: AmLODIPine BESYLATE 5 MG TABLET PO SCH (08:08)
[2022-01-16] MEDS: LORazepam 2 MG TABLET PO PRN ×2 (08:08→16:18)
[2022-01-16] MEDS: LOSARTAN POTASSIUM 50 MG TABLET PO SCH (08:08)
[2022-01-16] MEDS: DIVALPROEX SODIUM 500 MG DR TABLET PO SCH ×2 (08:08→16:08)
[2022-01-16] MEDS: ATORVASTATIN CALCIUM 20 MG TABLET PO SCH (08:08)
[2022-01-16 08:37] VITALS: BP 117/73
[2022-01-16 16:02] VITALS: BP 143/93
[2022-01-16] MEDS: HALOPERIDOL 5 MG TABLET PO PRN (16:18)
[2022-01-16] MEDS: ZOLPIDEM TARTRATE 10 MG TABLET PO PRN (20:14)
[2022-01-17 04:19] VITALS: BP 157/98
[2022-01-17 08:03] VITALS: BP 120/79
[2022-01-17] MEDS: ATORVASTATIN CALCIUM 20 MG TABLET PO SCH (08:44)
[2022-01-17] MEDS: HYDROCHLOROTHIAZIDE 25 MG TABLET PO SCH (08:44)
[2022-01-17] MEDS: ARIPiprazole 15 MG TABLET PO SCH (08:44)
[2022-01-17] MEDS: AmLODIPine BESYLATE 5 MG TABLET PO SCH (08:44)
[2022-01-17] MEDS: LOSARTAN POTASSIUM 50 MG TABLET PO SCH (08:44)
[2022-01-17] MEDS: DIVALPROEX SODIUM 500 MG DR TABLET PO SCH ×2 (08:44→16:05)
[2022-01-17] MEDS: LORazepam 2 MG TABLET PO PRN ×2 (09:35→12:44)
[2022-01-17] MEDS: HALOPERIDOL 5 MG TABLET PO PRN (12:44)
[2022-01-17 16:53] VITALS: BP 119/67
[2022-01-18] MEDS: LORazepam 2 MG TABLET PO PRN ×4 (00:01→21:10)
[2022-01-18] MEDS: ZOLPIDEM TARTRATE 10 MG TABLET PO PRN ×2 (00:01→20:06)
[2022-01-18] MEDS: HALOPERIDOL 5 MG TABLET PO PRN ×4 (00:02→22:04)
[2022-01-18 01:24] VITALS: BP 137/92
[2022-01-18] MEDS: ARIPiprazole 15 MG TABLET PO SCH (08:14)
[2022-01-18] MEDS: DIVALPROEX SODIUM 500 MG DR TABLET PO SCH ×2 (08:14→16:46)
[2022-01-18] MEDS: LOSARTAN POTASSIUM 50 MG TABLET PO SCH (08:14)
[2022-01-18] MEDS: AmLODIPine BESYLATE 5 MG TABLET PO SCH (08:14)
[2022-01-18] MEDS: HYDROCHLOROTHIAZIDE 25 MG TABLET PO SCH (08:17)
[2022-01-18] MEDS: ATORVASTATIN CALCIUM 20 MG TABLET PO SCH (08:17)
[2022-01-18 10:26] LABS: GLUCOMETER DEV NAME(LOC) POC.BV
[2022-01-18 16:07] VITALS: BP 106/71
[2022-01-19 00:59] VITALS: BP 137/97
[2022-01-19] MEDS: ATORVASTATIN CALCIUM 20 MG TABLET PO SCH (09:17)
[2022-01-19] MEDS: ARIPiprazole 15 MG TABLET PO SCH (09:17)
[2022-01-19] MEDS: AmLODIPine BESYLATE 5 MG TABLET PO SCH (09:18)
[2022-01-19] MEDS: HYDROCHLOROTHIAZIDE 25 MG TABLET PO SCH (09:18)
[2022-01-19] MEDS: LOSARTAN POTASSIUM 50 MG TABLET PO SCH (09:18)
[2022-01-19] MEDS: DIVALPROEX SODIUM 500 MG DR TABLET PO SCH (09:20)
[2022-01-19] MEDS ORDERED: DIVA-112 PO (12:02)
[2022-01-19] MEDS ORDERED: ARIP15TA27 PO (12:02)
[2022-01-19] MEDS ORDERED: ATOR20TA65 PO (21:59)
[2022-01-19] MEDS ORDERED: LOSA-382 PO (21:59)
[2022-01-19] MEDS ORDERED: AMLO-257 PO (21:59)
[2022-01-19] MEDS ORDERED: HYDR-4870 PO (21:59)
== END 2022-01-19 13:45 | disposition home or self-care (01) | DRG 750 ==
LOC: EMS 11:58 → B3A 14:58
PROVIDERS: ADMIT Psychiatry & Neurology Psychiatry; ATTEND Psychiatry & Neurology Psychiatry
DX: F25.9 Schizoaffective disorder, unspecified (principal); E11.9 Type 2 diabetes mellitus without complications; R45.851 Suicidal ideations; E87.6 Hypokalemia; F15.10 Other stimulant abuse, uncomplicated; F41.9 Anxiety disorder, unspecified; G47.00 Insomnia, unspecified; I10 Essential (primary) hypertension; K21.9 Gastro-esophageal reflux disease without esophagitis; F17.210 Nicotine dependence, cigarettes, uncomplicated; Z20.822 Contact with and (suspected) exposure to COVID-19
CPT/HCPCS: 80048; 80053; 80061; 80164; 83036; 84443; 85025; 99285; G0480

== ENCOUNTER 2022-02-02 12:03 | Emergency (ER) | payer MEDICAID, OTHER ==
[~2022-02-02] VITALS: Ht 175.3 cm; Wt 84.1 kg
[~2022-02-02 12:03] MED LIST changes: +ARIP15TA27 PO; +ATOR20TA65 PO; +DIVA-112 PO; -FLUO10CA24 PO; +HYDR25TA2 PO; -QUET100T34 PO; -QUET200T PO; -TOPI100T37 PO
[2022-02-02] MEDS ORDERED: LIDOCAINE 5% TRANSDERMAL PATCH TD ONE (13:45)
[2022-02-02 14:20] LABS: COVID AG,FIA SOURCE NASOPHARYNGEAL
[2022-02-02] MEDS ORDERED: BACL10TA PO (15:17)
[2022-02-02] MEDS ORDERED: IBUP-2071 PO (15:19)
[2022-02-02] MEDS ORDERED: KETOROLAC TROMETHAMINE 30 MG/ML VIAL IM ONE (16:00)
[2022-02-02 16:18] VITALS: BP 145/92
== END 2022-02-02 16:27 | disposition home or self-care (01) ==
LOC: EMS 12:03
DX: M79.18 Myalgia, other site (principal); Z20.822 Contact with and (suspected) exposure to COVID-19; F20.9 Schizophrenia, unspecified; F15.10 Other stimulant abuse, uncomplicated; F17.210 Nicotine dependence, cigarettes, uncomplicated; I10 Essential (primary) hypertension; R05.9 Cough, unspecified; R52 Pain, unspecified
CPT/HCPCS: 99283; 87426; 96372; J1885

== ENCOUNTER 2022-04-16 09:53 | Emergency (ER) | payer OTHER ==
[~2022-04-16] VITALS: Ht 175.3 cm; Wt 84.5 kg
[~2022-04-16 09:53] MED LIST changes: +BACL10TA PO; +IBUP-2071 PO
[2022-04-16] MEDS ORDERED: ARIP400S3 IM (10:04)
[2022-04-16] MEDS ORDERED: HYDR25TA PO (10:04)
[2022-04-16] MEDS ORDERED: GABA800T9 PO (10:04)
[2022-04-16] MEDS ORDERED: LOSA100T58 PO (10:04)
[2022-04-16] MEDS ORDERED: AMLO5TAB66 PO (10:04)
[2022-04-16] MEDS ORDERED: METHOCARBAMOL 500 MG TABLET PO ONE (11:45)
[2022-04-16] MEDS ORDERED: GABAPENTIN 300 MG CAPSULE PO ONE (11:45)
[2022-04-16] MEDS ORDERED: KETOROLAC TROMETHAMINE 60 MG/2 ML VIAL IM ONE (11:45)
[2022-04-16 12:08] VITALS: BP 136/88
[2022-04-16] MEDS ORDERED: NAPR-1025 PO (12:29)
[2022-04-16] MEDS ORDERED: GABA-1181 PO (12:29)
[2022-04-16] MEDS ORDERED: METH-659 PO (12:29)
== END 2022-04-16 12:53 | disposition home or self-care (01) ==
LOC: EMS 10:02
DX: S13.4XXA Sprain of ligaments of cervical spine, initial encounter (principal); F20.9 Schizophrenia, unspecified; F15.10 Other stimulant abuse, uncomplicated; F17.210 Nicotine dependence, cigarettes, uncomplicated; I10 Essential (primary) hypertension; M62.838 Other muscle spasm; X50.0XXA Overexertion from strenuous movement or load, initial encounter; Y93.89 Activity, other specified; Y92.89 Other specified places as the place of occurrence of the external cause; Y99.8 Other external cause status
CPT/HCPCS: 99283; 96372; J1885

== ENCOUNTER 2022-07-26 05:37 | Inpatient (IN) | payer OTHER ==
[~2022-07-26] VITALS: Ht 175.3 cm; Wt 81.6 kg
[~2022-07-26 05:37] MED LIST changes: -AMLO-257 PO; +AMLO5TAB66 PO; -ARIP15TA27 PO; +ARIP400S3 IM; -ATOR20TA65 PO; -BACL10TA PO; -DIVA-112 PO; +GABA-1181 PO; +GABA800T9 PO; +HYDR25TA PO; -HYDR25TA2 PO; +IBUP-1493 PO; -IBUP-2071 PO; -LOSA-382 PO; +LOSA100T58 PO; +METH-659 PO; +NAPR-1025 PO
[2022-07-26 05:58] LABS: BASOPHILS % (AUTO) 0.5 % (0.0-2.0); EOSINOPHILS % (AUTO) 0.3 % (1.0-6.0); HEMATOCRIT 46.3 % (41-53); HEMOGLOBIN 15.4 g/dL (13.5-17.5); LYMPHOCYTES # (AUTO) 1.9 K/uL (1.0-4.8); LYMPHOCYTES % (AUTO) 21.8 % (22.0-44.0); MEAN CORPUSCULAR HEMOGLOBIN 29.1 pg (26.0-34.0); MEAN CORPUSCULAR HGB CONC 33.2 G/dL (31.0-37.0); MEAN CORPUSCULAR VOLUME 88 fL (80-100); MONOCYTES # (AUTO) 0.3 K/uL (0.1-1.0); NEUTROPHILS # (AUTO) 6.6 K/uL (1.8-7.7); NEUTROPHILS % (AUTO) 74.4 % (40.0-70.0); PLATELET COUNT (AUTO) 240 K/uL (150-450); RED BLOOD CELL COUNT(AUTO) 5.28 MIL/uL (4.50-5.90); RED CELL DISTRIBUTION WIDTH 13.7 % (11.5-14.5)
[2022-07-26 06:08] LABS: CALCIUM, TOTAL 8.8 mg/dL (8.8-10.5); CREATININE 1.41 mg/dL (0.60-1.30); POTASSIUM 3.8 mmol/L (3.5-5.1)
[2022-07-26 06:14] LABS: ALBUMIN 3.9 g/dL (3.4-5.0); BILIRUBIN,TOTAL 0.4 mg/dL (0.1-1.0); TOTAL PROTEIN, SERUM 7.1 g/dL (6.4-8.2)
[2022-07-26 06:15] LABS: PROTHROMBIN TIME 10.9 SEC (9.4-11.6)
[2022-07-26] MEDS ORDERED: IOHEXOL 350 MG/ML 100 ML VIAL ONE (06:15)
[2022-07-26] MEDS ORDERED: SODIUM CHLORIDE 0.9% 100 ML ONE (06:15)
[2022-07-26] MEDS ORDERED: ARIP15TA2 PO (06:44)
[2022-07-26] MEDS ORDERED: NALO4SPR NASAL (06:44)
[2022-07-26] MEDS ORDERED: FLUO40CA PO (06:44)
[2022-07-26] MEDS ORDERED: HYDR50CA7 PO (06:44)
[2022-07-26] MEDS ORDERED: ASPIRIN 81 MG CHEWABLE TABLET PO ONE (06:45)
[2022-07-26 07:48] LABS: APPEARANCE,URINE CLEAR (CLEAR); BILIRUBIN,URINE NEGATIVE (NEGATIVE); GLUCOSE, URINE (UA) NEGATIVE (NEGATIVE); KETONES,URINE NEGATIVE (NEGATIVE); LEUKOCYTE ESTERASE ,URINE NEGATIVE (NEGATIVE); NITRATE,URINE NEGATIVE (NEGATIVE); OCCULT BLOOD,URINE NEGATIVE (NEGATIVE); PROTEIN,URINE 30-70 mg/dL (NEGATIVE); UROBILINOGEN,URINE <=1.0 mg/dL (<=1.0)
[2022-07-26 07:51] LABS: SPECIFIC GRAVITIY, URINE > 1.050 (1.003-1.030)
[2022-07-26 07:53] LABS: BACTERIA,URINE None Seen /HPF (None Seen); RBC,URINE None Seen /HPF (0-2); WBC,URINE None Seen /HPF (0-5)
[2022-07-26 07:54] LABS: AMPHET/METH SCREEN,URINE NEGATIVE (NEGATIVE); BARBITURATE SCREEN, URINE NEGATIVE (NEGATIVE); BENZODIAZEPINES SCREEN,URINE NEGATIVE (NEGATIVE); CANNABINOID SCREEN,URINE POSITIVE (NEGATIVE); COCAINE SCREEN,URINE NEGATIVE (NEGATIVE); METHADONE SCREEN, URINE NEGATIVE (NEGATIVE); OPIATE SCREEN,URINE NEGATIVE (NEGATIVE); PHENCYCLIDINE SCREEN,URINE NEGATIVE (NEGATIVE)
[2022-07-26 10:15] LABS: COVID AG,FIA SOURCE NASAL SWAB
[2022-07-26 10:59] LABS: INFLUENZA TYPE A NEGATIVE FOR TYPE A (NEGATIVE); INFLUENZA TYPE B NEGATIVE FOR TYPE B (NEGATIVE)
[2022-07-26 17:45] VITALS: BP 140/93
[2022-07-26] MEDS ORDERED: INFLUENZA VIRUS VACCINE QVS 2022-23 (6MO+)/PF 60 MCG/0.5 ML SYRINGE IM. ONE (19:30)
[2022-07-26 21:00] VITALS: BP 116/73
[2022-07-26] MEDS ORDERED: IPRATROPIUM BROMIDE 0.5 MG/2.5 ML NEB SOLUTION NEB PRN (23:00)
[2022-07-26] MEDS ORDERED: MORPHINE SULFATE 2 MG/ML SYRINGE IVP PRN (23:00)
[2022-07-26] MEDS ORDERED: NAPROXEN 500 MG TABLET PO PRN (23:00)
[2022-07-26] MEDS ORDERED: ACETAMINOPHEN 325 MG TABLET PO PRN (23:00)
[2022-07-26] MEDS ORDERED: ZOLPIDEM TARTRATE 5 MG TABLET PO PRN (23:00)
[2022-07-26] MEDS ORDERED: BISACODYL 10 MG RECTAL RECTAL SUPPOSITORY PR PRN (23:00)
[2022-07-26] MEDS ORDERED: ONDANSETRON HCL 4 MG/2 ML VIAL IVP PRN (23:00)
[2022-07-26] MEDS ORDERED: ALBUTEROL SULFATE 2.5 MG/0.5 ML NEB SOLUTION NEB PRN (23:00)
[2022-07-26] MEDS ORDERED: MAGNESIUM HYDROXIDE SUSPENSION 30 ML UDCUP PO PRN (23:00)
[2022-07-26] MEDS ORDERED: HYDROCODONE/ACETAMINOPHEN 5-325 MG TABLET PO PRN (23:00)
[2022-07-26] MEDS: HEPARIN SODIUM,PORCINE 5,000 UNITS/ML VIAL SQ SCH (23:19)
[2022-07-27 00:30] VITALS: BP 139/89
[2022-07-27 04:19] VITALS: BP 150/114
[2022-07-27 07:03] VITALS: BP 127/92
[2022-07-27] MEDS: GABAPENTIN 400 MG CAPSULE PO SCH ×3 (08:01→20:03)
[2022-07-27] MEDS: HEPARIN SODIUM,PORCINE 5,000 UNITS/ML VIAL SQ SCH ×3 (08:01→23:41)
[2022-07-27] MEDS: PANTOPRAZOLE SODIUM 40 MG DR TABLET PO SCH (08:01)
[2022-07-27] MEDS: HYDROCHLOROTHIAZIDE 25 MG TABLET PO SCH (08:02)
[2022-07-27] MEDS: METHOCARBAMOL 500 MG TABLET PO SCH ×2 (08:02→20:03)
[2022-07-27] MEDS: ARIPiprazole 15 MG TABLET PO SCH (08:02)
[2022-07-27] MEDS: AmLODIPine BESYLATE 5 MG TABLET PO SCH (08:02)
[2022-07-27] MEDS: LOSARTAN POTASSIUM 50 MG TABLET PO SCH (08:02)
[2022-07-27] MEDS: FLUoxetine HCL 20 MG CAPSULE PO SCH (08:02)
[2022-07-27] MEDS ORDERED: GABAPENTIN 300 MG CAPSULE PO SCH (09:00)
[2022-07-27 11:20] VITALS: BP 148/88
[2022-07-27 15:13] VITALS: BP 123/80
[2022-07-27 20:00] VITALS: BP 138/92
[2022-07-27] MEDS ORDERED: IBUPROFEN 800 MG TABLET PO PRN (20:30)
[2022-07-27] MEDS ORDERED: HydrOXYzine PAMOATE 50 MG CAPSULE PO SCH (21:00)
[2022-07-28] VITALS: BP 138/94
[2022-07-28 04:00] VITALS: BP 128/82
[2022-07-28 05:58] LABS: CHOL/HDL RATIO 5.2 (4.2-7.3)
[2022-07-28 07:25] VITALS: BP 144/89
[2022-07-28] MEDS: AmLODIPine BESYLATE 5 MG TABLET PO SCH (08:30)
[2022-07-28] MEDS: FLUoxetine HCL 20 MG CAPSULE PO SCH (08:30)
[2022-07-28] MEDS: PANTOPRAZOLE SODIUM 40 MG DR TABLET PO SCH (08:30)
[2022-07-28] MEDS: GABAPENTIN 400 MG CAPSULE PO SCH ×2 (08:30→15:56)
[2022-07-28] MEDS: HEPARIN SODIUM,PORCINE 5,000 UNITS/ML VIAL SQ SCH ×2 (08:30→15:56)
[2022-07-28] MEDS: HYDROCHLOROTHIAZIDE 25 MG TABLET PO SCH (08:30)
[2022-07-28] MEDS: ARIPiprazole 15 MG TABLET PO SCH (08:30)
[2022-07-28] MEDS: METHOCARBAMOL 500 MG TABLET PO SCH (08:30)
[2022-07-28] MEDS: LOSARTAN POTASSIUM 50 MG TABLET PO SCH (08:30)
[2022-07-28 11:00] VITALS: BP 118/71
[2022-07-28 16:00] VITALS: BP 115/75
[2022-07-28] MEDS ORDERED: ASPI81TA87 PO (16:33)
[2022-07-28] MEDS ORDERED: ATOR10TA PO (16:33)
== END 2022-07-28 17:00 | disposition home or self-care (01) | DRG 47 ==
LOC: EMS 05:37 → AHU 10:54 → 5N 21:14
PROVIDERS: ADMIT Hospitalist; ATTEND Hospitalist
DX: G45.9 Transient cerebral ischemic attack, unspecified (principal); F17.210 Nicotine dependence, cigarettes, uncomplicated; F20.9 Schizophrenia, unspecified; I10 Essential (primary) hypertension; F41.0 Panic disorder [episodic paroxysmal anxiety]; F32.A Depression, unspecified; F41.9 Anxiety disorder, unspecified; Z20.822 Contact with and (suspected) exposure to COVID-19
CPT/HCPCS: 70496; 70498; 71045; 80053; 80061; 80307; 81001; 82948; 84484; 85025; 85610; 85730; 86850; 86900; 86901; 87804; 92610; 93005; 97162; 97165; 97535; 99285; G0480; J1644; J7050; Q9967; 36415-L1; 36415-TC; 70450; 70450-TC

== ENCOUNTER 2023-02-18 23:25 | Emergency (ER) | payer OTHER ==
[~2023-02-18] VITALS: Ht 175.3 cm; Wt 82.0 kg
[~2023-02-18 23:25] MED LIST changes: +ARIP15TA2 PO; +ASPI81TA87 PO; +ATOR10TA PO; +FLUO40CA PO; +HYDR50CA7 PO; -LOSA100T58 PO; +LOSA100T59 PO; +NALO4SPR NASAL; -NAPR-1025 PO
[2023-02-18 23:28] VITALS: TEMP 97.4
[2023-02-19] MEDS ORDERED: HydrOXYzine PAMOATE 50 MG CAPSULE PO ONE (00:15)
[2023-02-19] MEDS ORDERED: IBUPROFEN 600 MG TABLET PO ONE (02:00)
[2023-02-19 02:08] VITALS: BP 154/87; PULSE 98; RESP 20
== END 2023-02-19 02:25 | disposition home or self-care (01) ==
LOC: EMS 23:25
DX: F41.9 Anxiety disorder, unspecified (principal); M25.512 Pain in left shoulder; E78.00 Pure hypercholesterolemia, unspecified; I10 Essential (primary) hypertension; F20.9 Schizophrenia, unspecified; F17.210 Nicotine dependence, cigarettes, uncomplicated; F12.90 Cannabis use, unspecified, uncomplicated; F15.90 Other stimulant use, unspecified, uncomplicated; Z98.890 Other specified postprocedural states
CPT/HCPCS: 99283

== ENCOUNTER 2023-12-22 08:45 | Inpatient (IN) | payer MEDICAID, OTHER ==
[~2023-12-22] VITALS: Ht 175.3 cm; Wt 74.4 kg
[~2023-12-22 08:45] MED LIST changes: +ACET-3385 PO; +AMOX1TAB16 PO; +IBUP-1492 PO
[2023-12-22] MEDS: HALOPERIDOL 5 MG TABLET PO ONE (09:23)
[2023-12-22 09:46] LABS: BASOPHILS % (AUTO) 0.3 % (0.0-2.0); EOSINOPHILS % (AUTO) 0.1 % (1.0-6.0); HEMOGLOBIN 17.2 g/dL (13.5-17.5); LYMPHOCYTES % (AUTO) 11.3 % (22.0-44.0); MEAN CORPUSCULAR HEMOGLOBIN 29.4 pg (26.0-34.0); MEAN CORPUSCULAR HGB CONC 34.5 G/dL (31.0-37.0); MEAN CORPUSCULAR VOLUME 86 fL (80-100); MONOCYTES # (AUTO) 0.4 K/uL (0.1-1.0); MONOCYTES % (AUTO) 4.7 % (2.0-9.0); NEUTROPHILS # (AUTO) 7.4 K/uL (1.8-7.7); NEUTROPHILS % (AUTO) 83.6 % (40.0-70.0); PLATELET COUNT (AUTO) 246 K/uL (150-450); RED BLOOD CELL COUNT(AUTO) 5.86 MIL/uL (4.50-5.90); RED CELL DISTRIBUTION WIDTH 13.5 % (11.5-14.5); WHITE BLOOD COUNT (AUTO) 8.9 K/uL (4.5-11.0)
[2023-12-22 09:50] LABS: ANION GAP 13 mmol/L (8-16); CALCIUM, TOTAL 9.2 mg/dL (8.8-10.5); CARBON DIOXIDE 27 mmol/L (22-29); CHLORIDE 101 mmol/L (98-107); CREATININE 1.07 mg/dL (0.60-1.30); GLOMERULAR FILTR. RATE CALC > 60 mL/min (>60); GLUCOSE,RANDOM 133 mg/dL (70-110); POTASSIUM 3.6 mmol/L (3.5-5.1); SODIUM SERUM 141 mmol/L (136-145); UREA NITROGEN, BLOOD 9 mg/dL (7-18)
[2023-12-22 09:54] LABS: ALCOHOL, BLOOD (SERUM) < 3 mg/dL (0-10)
[2023-12-22 09:56] LABS: ALANINE AMINOTRANSFERASE 28 U/L (12-78); ALBUMIN 4.4 g/dL (3.4-5.0); ALKALINE PHOSPHATASE 89 U/L (46-116); ASPARTATE AMINOTRANSFERASE 21 U/L (15-37); BILIRUBIN,TOTAL 0.6 mg/dL (0.1-1.0); TOTAL PROTEIN, SERUM 8.1 g/dL (6.4-8.2)
[2023-12-22 09:57] LABS: ACETAMINOPHEN < 2 mcg/mL (10-30)
[2023-12-22] MEDS: LOSARTAN POTASSIUM 50 MG TABLET PO ONE (10:25)
[2023-12-22] MEDS: HYDROCHLOROTHIAZIDE 25 MG TABLET PO ONE (10:25)
[2023-12-22] MEDS: AmLODIPine BESYLATE 5 MG TABLET PO ONE (10:26)
[2023-12-22 11:04] LABS: ALCOHOL, URINE DRUG SCREEN NEGATIVE (NEGATIVE); AMPHET/METH SCREEN,URINE POSITIVE (NEGATIVE); BARBITURATE SCREEN, URINE NEGATIVE (NEGATIVE); BENZODIAZEPINES SCREEN,URINE NEGATIVE (NEGATIVE); CANNABINOID SCREEN,URINE POSITIVE (NEGATIVE); COCAINE SCREEN,URINE NEGATIVE (NEGATIVE); METHADONE SCREEN, URINE NEGATIVE (NEGATIVE); OPIATE SCREEN,URINE NEGATIVE (NEGATIVE); PHENCYCLIDINE SCREEN,URINE NEGATIVE (NEGATIVE)
[2023-12-22] MEDS: LORazepam 2 MG/ML VIAL IM ONE (11:46)
[2023-12-22] MEDS: HALOPERIDOL LACTATE 5 MG/ML VIAL IM ONE (11:48)
[2023-12-22] MEDS: DiphenhydrAMINE HCL 50 MG/ML VIAL IM ONE (11:48)
[2023-12-22 15:04] LABS: COVID AG,FIA SOURCE NASAL SWAB
[2023-12-22 15:24] LABS: SARS-COV2 (COVID) ANTIGEN,FIA Negative (Negative)
[2023-12-23 04:50] VITALS: BP 145/114; PULSE 89; RESP 18; TEMP 97.9; O2SAT 100
[2023-12-23] MEDS ORDERED: OMEPRAZOLE 20 MG CAPSULE PO PRN (05:45)
[2023-12-23] MEDS ORDERED: DOCUSATE SODIUM 100 MG CAPSULE PO PRN (05:45)
[2023-12-23] MEDS ORDERED: ONDANSETRON HCL 4 MG TABLET PO PRN (05:45)
[2023-12-23] MEDS ORDERED: MAG HYDROX/ALUMINUM HYD/SIMETH ES 30 ML SUSPENSION UDCUP PO PRN (05:45)
[2023-12-23] MEDS ORDERED: ALBUTEROL SULFATE HFA 90 MCG/PUFF 8 GM INHALER IH PRN (05:45)
[2023-12-23] MEDS ORDERED: MAGNESIUM HYDROXIDE SUSPENSION 30 ML UDCUP PO PRN (05:45)
[2023-12-23] MEDS ORDERED: LOPERAMIDE HCL 2 MG CAPSULE PO PRN (05:45)
[2023-12-23] MEDS ORDERED: PETROLATUM,WHITE 28 GM JELLY TP PRN (05:45)
[2023-12-23] MEDS ORDERED: CloNIDine HCL 0.1 MG TABLET PO PRN (05:45)
[2023-12-23] MEDS ORDERED: BENZOCAINE/MENTHOL LOZENGE PO PRN (05:45)
[2023-12-23] MEDS ORDERED: BACITRACIN 28 GM OINTMENT TP PRN (05:45)
[2023-12-23] MEDS ORDERED: PNEUMOCOCCAL VACCINE POLYVALENT 0.5 ML SYRINGE [PPSV23] IM. ONE (06:45)
[2023-12-23] MEDS: AmLODIPine BESYLATE 5 MG TABLET PO SCH (09:57)
[2023-12-23] MEDS: HYDROCHLOROTHIAZIDE 25 MG TABLET PO SCH (09:57)
[2023-12-23] MEDS: ASPIRIN 81 MG DR TABLET PO SCH (09:57)
[2023-12-23] MEDS: METHOCARBAMOL 500 MG TABLET PO SCH (09:57)
[2023-12-23 10:58] VITALS: BP 135/102; PULSE 96; RESP 18; TEMP 97.9; O2SAT 100
[2023-12-23] MEDS: HALOPERIDOL 5 MG TABLET PO PRN (20:29)
[2023-12-23] MEDS: ACETAMINOPHEN 325 MG TABLET PO PRN (20:30)
[2023-12-23] MEDS: ATORVASTATIN CALCIUM 10 MG TABLET PO SCH (20:42)
[2023-12-23 21:37] VITALS: BP 136/88; PULSE 82; RESP 19; TEMP 98.1; O2SAT 100
[2023-12-24] VITALS (8 sets, daily range): BP systolic 125–160; BP diastolic 82–107; PULSE 80–94; RESP 0–19; TEMP 97.8–98.3; O2SAT 97–99
[2023-12-24] MEDS: IBUPROFEN 600 MG TABLET PO PRN (01:06)
[2023-12-24] MEDS: LORazepam 2 MG TABLET PO PRN (07:59)
[2023-12-24] MEDS ORDERED: SILD100T71 PO (11:20)
[2023-12-24] MEDS ORDERED: QUET100T34 PO (11:20)
[2023-12-24] MEDS ORDERED: DULO20CA71 PO (11:20)
[2023-12-24] MEDS ORDERED: HYDR-4584 PO (11:20)
[2023-12-24] MEDS ORDERED: LOSA1TAB40 PO (11:20)
[2023-12-24] MEDS ORDERED: AMLO10TA55 PO (11:20)
[2023-12-24] MEDS ORDERED: FLUO20TA29 PO (11:20)
[2023-12-24] MEDS: ARIPiprazole 15 MG TABLET PO SCH (11:24)
[2023-12-24] MEDS: DIVALPROEX SODIUM 500 MG DR TABLET PO SCH (17:14)
[2023-12-24] MEDS: QUEtiapine FUMARATE 300 MG TABLET PO ONE (19:00)
[2023-12-24] MEDS ORDERED: TiZANidine HCL 4 MG TABLET PO PRN (21:15)
[2023-12-24] MEDS ORDERED: TraMADol HCL 50 MG TABLET PO PRN (21:15)
[2023-12-24] MEDS: ZOLPIDEM TARTRATE 10 MG TABLET PO PRN (23:01)
[2023-12-24] MEDS: LIDOCAINE 5% TRANSDERMAL PATCH TD SCH (23:04)
[2023-12-25] VITALS (7 sets, daily range): BP systolic 117–137; BP diastolic 68–91; PULSE 84–92; RESP 17–18; TEMP 97.2–98.2; O2SAT 96–99
[2023-12-25] MEDS: -LIDODERM PATCH NOTE- MISC SCH (09:00)
[2023-12-25] MEDS: QUEtiapine FUMARATE 300 MG TABLET PO SCH (20:46)
[2023-12-26 00:30] VITALS: BP 130/72; PULSE 91; RESP 18; TEMP 98; O2SAT 98
[2023-12-26 09:29] VITALS: BP 126/70; PULSE 76; RESP 18; TEMP 97.9; O2SAT 96
[2023-12-26 09:38] VITALS: BP 126/70; PULSE 76; RESP 18; TEMP 97.9; O2SAT 96
[2023-12-26 18:29] VITALS: RESP 18
[2023-12-26 20:44] VITALS: BP 115/72; PULSE 90; RESP 18; TEMP 96.7; O2SAT 96
[2023-12-26 21:01] VITALS: BP 115/72; PULSE 90; RESP 19; TEMP 97.6; O2SAT 96
[2023-12-27 09:40] VITALS: BP 103/79; PULSE 80; RESP 18; TEMP 97.7; O2SAT 98
[2023-12-27 20:38] VITALS: BP 150/93; PULSE 91; RESP 19; TEMP 98; O2SAT 97
[2023-12-27 20:49] VITALS: BP 150/93; PULSE 91; RESP 19; TEMP 98; O2SAT 97
[2023-12-28 08:36] VITALS: BP 141/60; PULSE 83; RESP 18; TEMP 97.9; O2SAT 97
[2023-12-28 20:00] VITALS: BP 133/84; PULSE 89; RESP 18; TEMP 97.7; O2SAT 98
[2023-12-28 21:00] VITALS: BP 133/84; PULSE 84; RESP 18; TEMP 97.7; O2SAT 98
[2023-12-29] MEDS: DiphenhydrAMINE HCL 50 MG/ML VIAL IM ONE (02:51)
[2023-12-29] MEDS: LORazepam 2 MG/ML VIAL IM ONE (02:54)
[2023-12-29] MEDS: HALOPERIDOL LACTATE 5 MG/ML VIAL IM ONE (02:55)
[2023-12-29 08:09] VITALS: BP 154/109; PULSE 88; RESP 18; TEMP 98.2; O2SAT 98
[2023-12-29 12:25] VITALS: BP 150/101; PULSE 87; RESP 18
[2023-12-29 13:29] VITALS: RESP 18
[2023-12-29] MEDS ORDERED: ARIP15TA27 PO (15:12)
[2023-12-29] MEDS ORDERED: DIVA-112 PO (15:16)
[2023-12-29] MEDS ORDERED: HYDR25TA2 PO (15:27)
== END 2023-12-29 15:45 | disposition home or self-care (01) | DRG 750 ==
LOC: EMS 08:45 → 3EI 12-23 03:23
PROVIDERS: ADMIT Psychiatry & Neurology Psychiatry; ATTEND Psychiatry & Neurology Psychiatry
PROC: GZHZZZZ Group Psychotherapy (ICD-10-PCS; principal; 2023-12-29)
DX: F25.0 Schizoaffective disorder, bipolar type (principal); E11.9 Type 2 diabetes mellitus without complications; I10 Essential (primary) hypertension; F31.9 Bipolar disorder, unspecified; K21.9 Gastro-esophageal reflux disease without esophagitis; F41.9 Anxiety disorder, unspecified; F19.10 Other psychoactive substance abuse, uncomplicated; F10.10 Alcohol abuse, uncomplicated; G47.00 Insomnia, unspecified; Z20.822 Contact with and (suspected) exposure to COVID-19; E78.00 Pure hypercholesterolemia, unspecified; M54.9 Dorsalgia, unspecified; T50.992A Poisoning by other drugs, medicaments and biological substances, intentional self-harm, initial encounter; Y92.89 Other specified places as the place of occurrence of the external cause; Z87.891 Personal history of nicotine dependence; Z88.8 Allergy status to other drugs, medicaments and biological substances
CPT/HCPCS: 72100; 80053; 80164; 80307; 83036; 85025; 93005; 99285; G0480; G0481; J1200; J1630; J2060

== ENCOUNTER 2024-09-05 07:17 | Emergency (ER) | payer MEDICAID, OTHER ==
[~2024-09-05] VITALS: Ht 175.3 cm; Wt 77.3 kg
[~2024-09-05 07:17] MED LIST changes: -ACET-3385 PO; +AMLO10TA55 PO; -AMLO5TAB66 PO; -AMOX1TAB16 PO; -ARIP15TA2 PO; +ARIP15TA27 PO; -ARIP400S3 IM; +DIVA-112 PO; -FLUO40CA PO; -GABA-1181 PO; -GABA800T9 PO; -HYDR25TA PO; +HYDR25TA2 PO; -HYDR50CA7 PO; -IBUP-1492 PO; -IBUP-1493 PO; -LOSA100T59 PO; -METH-659 PO; -NALO4SPR NASAL; +QUET100T34 PO
[2024-09-05] MEDS ORDERED: DULO20CA71 PO (07:22)
[2024-09-05] MEDS ORDERED: ARIP20TA63 PO (07:22)
[2024-09-05] MEDS ORDERED: QUET300T19 PO (07:22)
[2024-09-05] MEDS ORDERED: HYDR50CA6 PO (07:22)
[2024-09-05 07:37] LABS: COVID AG,FIA SOURCE NASAL SWAB
[2024-09-05 07:45] LABS: BASOPHILS % (AUTO) 0.4 % (0.0-2.0); EOSINOPHILS % (AUTO) 0.5 % (1.0-6.0); HEMATOCRIT 48.5 % (41-53); HEMOGLOBIN 16.3 g/dL (13.5-17.5); LYMPHOCYTES # (AUTO) 0.8 K/uL (1.0-4.8); LYMPHOCYTES % (AUTO) 6.8 % (22.0-44.0); MEAN CORPUSCULAR HEMOGLOBIN 28.6 pg (26.0-34.0); MEAN CORPUSCULAR HGB CONC 33.6 G/dL (31.0-37.0); MEAN CORPUSCULAR VOLUME 85 fL (80-100); MONOCYTES # (AUTO) 0.8 K/uL (0.1-1.0); MONOCYTES % (AUTO) 6.9 % (2.0-9.0); NEUTROPHILS # (AUTO) 10.1 K/uL (1.8-7.7); PLATELET COUNT (AUTO) 262 K/uL (150-450); RED CELL DISTRIBUTION WIDTH 14.2 % (11.5-14.5); WHITE BLOOD COUNT (AUTO) 11.8 K/uL (4.5-11.0)
[2024-09-05 07:46] LABS: NEUTROPHILS % (AUTO) 85.4 % (40.0-70.0)
[2024-09-05 07:58] LABS: ANION GAP 12 mmol/L (8-16); CALCIUM, TOTAL 9.3 mg/dL (8.8-10.5); CARBON DIOXIDE 24 mmol/L (22-29); CHLORIDE 98 mmol/L (98-107); CREATININE 0.96 mg/dL (0.60-1.30); GLOMERULAR FILTR. RATE CALC > 60 mL/min (>60); GLUCOSE,RANDOM 125 mg/dL (70-110); POTASSIUM 3.4 mmol/L (3.5-5.1); SODIUM SERUM 134 mmol/L (136-145); UREA NITROGEN, BLOOD 8 mg/dL (7-18)
[2024-09-05 07:59] LABS: LIPASE 34 U/L (16-77)
[2024-09-05 08:05] LABS: INFLUENZA TYPE A NEGATIVE FOR TYPE A (NEGATIVE); INFLUENZA TYPE B NEGATIVE FOR TYPE B (NEGATIVE); SARS-COV2 (COVID) ANTIGEN,FIA Negative (Negative)
[2024-09-05 09:30] LABS: APPEARANCE,URINE CLEAR (CLEAR); BILIRUBIN,URINE NEGATIVE (NEGATIVE); COLOR,URINE LIGHT YELLOW (YELLOW); GLUCOSE, URINE (UA) 70-100 mg/dL (NEGATIVE); KETONES,URINE NEGATIVE (NEGATIVE); LEUKOCYTE ESTERASE ,URINE NEGATIVE (NEGATIVE); NITRATE,URINE NEGATIVE (NEGATIVE); OCCULT BLOOD,URINE NEGATIVE (NEGATIVE); PROTEIN,URINE 30-70 mg/dL (NEGATIVE); UROBILINOGEN,URINE <=1.0 mg/dL (<=1.0)
[2024-09-05 09:32] LABS: BACTERIA,URINE None Seen /HPF (None Seen); RBC,URINE 0-2 /HPF (0-2); WBC,URINE 0-2 /HPF (0-5)
[2024-09-05] MEDS: KETOROLAC TROMETHAMINE 60 MG/2 ML VIAL IM ONE (10:13)
[2024-09-05 11:43] VITALS: BP 144/98; PULSE 91; RESP 18; TEMP 98.3; O2SAT 97
== END 2024-09-05 11:44 | disposition home or self-care (01) ==
LOC: EMS 07:17
DX: J06.9 Acute upper respiratory infection, unspecified (principal); F41.9 Anxiety disorder, unspecified; F32.A Depression, unspecified; E78.00 Pure hypercholesterolemia, unspecified; I10 Essential (primary) hypertension; F20.9 Schizophrenia, unspecified; F12.90 Cannabis use, unspecified, uncomplicated; F15.90 Other stimulant use, unspecified, uncomplicated; F17.210 Nicotine dependence, cigarettes, uncomplicated; Z79.82 Long term (current) use of aspirin; Z79.899 Other long term (current) drug therapy; Z98.890 Other specified postprocedural states; Z20.822 Contact with and (suspected) exposure to COVID-19
CPT/HCPCS: 99283; 87426; 80048; 81001; 83690; 85025; 87804; 36415; 96372; J1885